=== PATIENT | female | born 1995 | race Caucasian/White ===

== ENCOUNTER 2022-04-07 13:59 | Outpatient (CLI) | payer MEDICAID, SELFPAY ==
[2022-04-07 22:15] LABS: Basophils Percent Auto 0.3 % (0.0-3.0); Eosinophils Percent Auto 0.3 % (0.0-7.0); Hematocrit 41.4 % (33.0-51.0); Hemoglobin* 13.9 gm/dL (12.0-16.0); Immature Granulocytes Pct Auto 0.1 %; Mean Corpuscular HGB Conc 34 gm/dL (32-36); Mean Corpuscular Hemoglobin 26 pg (26-34); Mean Corpuscular Volume 79 fL (80-100); Monocytes Percent Auto 6.7 % (0.0-11.0); Neutrophils Percent Auto 71.6 % (42.0-72.0); Platelet Count* 394 K/uL (140-440); RDW Coefficient of Variation % 13.9 % (11.5-15.5); Red Blood Count 5.27 m/uL (4.00-5.20); White Blood Count* 11.07 K/uL (4.50-11.00)
[2022-04-07 22:22] LABS: Slide Review Reflex No
[2022-04-07 22:33] LABS: Albumin* 4.7 g/dL (3.3-5.0); Chloride* 103 mmol/L (96-114); Sodium* 140 mmol/L (135-149)
[2022-04-07 22:35] LABS: Amylase* 145 U/L (18-89)
[2022-04-07 22:36] LABS: Alanine Aminotransferase* 22 U/L (4-35); Alkaline Phosphatase* 92 U/L (40-150); Aspartate Amino Transferase* 20 U/L (12-35); Bilirubin Total* 0.5 mg/dL (0.1-1.5); Blood Urea Nitrogen* 9 mg/dL (5-24); Calcium* 9.7 mg/dL (8.4-10.6); Carbon Dioxide* 28 mmol/L (20-32); Creatinine* 0.6 mg/dL (0.5-1.5); Estimated Glomerular Filt Rate 125 ml/min; Glucose* 118 mg/dL (60-115); Lipase* 32 U/L (23-300)
== END 2022-04-07 14:00 | disposition home or self-care (01) ==
PROVIDERS: Visit Provider Nurse Practitioner Family
DX: R11.2 Nausea with vomiting, unspecified (principal)
CPT/HCPCS: 36415; 76705; 80048; 80053; 80076; 82077; 82150; 83690; 85025; 86140; 87086; 99283

== ENCOUNTER 2022-04-07 21:14 | Emergency (ER) | payer MEDICAID, SELFPAY ==
[2022-04-07 21:17] VITALS: BP 120/82; PULSE 78; RESP 18; TEMP 36.4; O2SAT 100; BMI 32.0
[2022-04-07 23:38] LABS: Basophils Percent Auto 0.2 % (0.0-3.0); Eosinophils Percent Auto 0.4 % (0.0-7.0); Hematocrit 40.8 % (33.0-51.0); Hemoglobin* 13.5 gm/dL (12.0-16.0); Immature Granulocytes Pct Auto 0.9 %; Lymphocytes Percent Auto 24.9 % (20-44); Mean Corpuscular HGB Conc 33 gm/dL (32-36); Mean Corpuscular Hemoglobin 26 pg (26-34); Mean Corpuscular Volume 79 fL (80-100); Monocytes Percent Auto 8.3 % (0.0-11.0); Neutrophils Percent Auto 65.3 % (42.0-72.0); Platelet Count* 357 K/uL (140-440); RDW Coefficient of Variation % 13.9 % (11.5-15.5); White Blood Count* 12.82 K/uL (4.50-11.00)
[2022-04-07 23:43] LABS: Slide Review Reflex No
[2022-04-07 23:51] LABS: Albumin* 4.7 g/dL (3.3-5.0); Chloride* 104 mmol/L (96-114); Sodium* 141 mmol/L (135-149)
[2022-04-07 23:52] LABS: Potassium* 3.8 mmol/L (3.6-5.1)
[2022-04-07 23:54] LABS: Bilirubin Direct* 0.1 mg/dL (0.0-0.5); Bilirubin Total* 0.7 mg/dL (0.1-1.5); Carbon Dioxide* 29 mmol/L (20-32); Creatinine* 0.6 mg/dL (0.5-1.5); Est. Creatinine Clearance* 125.61; Estimated Glomerular Filt Rate 125 ml/min
[2022-04-07 23:55] LABS: Alanine Aminotransferase* 22 U/L (4-35); Alkaline Phosphatase* 89 U/L (40-150); Aspartate Amino Transferase* 23 U/L (12-35); Blood Urea Nitrogen* 10 mg/dL (5-24); Calcium* 9.2 mg/dL (8.4-10.6); Glucose* 118 mg/dL (60-115); Total Protein* 8.1 g/dL (6.0-8.3)
[2022-04-07 23:58] LABS: C Reactive Protein* < 0.5 mg/dL (0.5-1.0); Ethanol* < 0.01 % (0.01-0.03)
--- NOTE | 2022-04-08 08:32 | ED_ITS ---
HPI - General Adult General Chief complaint: Nausea/Vomiting Stated complaint: Nausea & vomiting last 3 days Time Seen by Provider: 04/07/22 21:16 History of Present Illness HPI narrative: 26-year-old woman accompanied by friend with complaint of nausea vomiting and right upper abdominal pain. Third day of symptoms now. Was seen this afternoon in clinic in has been arranged for an ultrasound for the morning. Review of records shows normal transaminases at that time. She had she says what sounds like Zofran given in clinic but apparently was not able to get to the pharmacy in time to get more that had been prescribed. Looks like was also written for Prilosec. She has had 2 episodes of vomiting during the afternoon. She says she feels like she is losing her mind. Says she has been able to keep anything down for now this 3rd day. She denies constipation. Review of records shows that this episode may have have started around sharing a pt of whiskey with a friend; the quantity is reported to be atypical. She is wondering if the pain she is experiencing is just related to having an empty stomach or maybe from all the retching she had been doing. Related Data Home Medications Medication Instructions Recorded Confirmed alprazolam 1 mg tablet 1 mg PO TID 04/07/22 04/07/22 brexpiprazole 3 mg tablet (Rexulti) 3 mg PO QHS 04/07/22 04/07/22 fluticasone propionate 50 2 spray intranasal 04/07/22 04/07/22 mcg/actuation nasal spray,suspension gabapentin 600 mg tablet 600 mg PO 04/07/22 04/07/22 hydroxyzine pamoate 100 mg capsule 100 mg PO QID 04/07/22 04/07/22 ketotifen fumarate 0.025 % (0.035 2 drp ophthalmic (eye) BID 04/07/22 04/07/22 %) eye drops (Allergy Eye (ketotifen)) milnacipran 50 mg tablet (Savella) 50 mg PO BID 04/07/22 04/07/22 montelukast 10 mg tablet 10 mg PO 04/07/22 04/07/22 prazosin 5 mg capsule 5 mg PO QDAY 04/07/22 04/07/22 quetiapine 200 mg tablet,extended 200 mg PO QHS 04/07/22 04/07/22 release 24 hr quetiapine 50 mg tablet,extended 50 mg PO 04/07/22 04/07/22 release 24 hr sertraline 50 mg tablet (Zoloft) 50 mg PO QDAY 04/07/22 04/07/22 tizanidine 4 mg tablet 4 mg PO Q6H PRN 04/07/22 04/07/22 trazodone 100 mg tablet 100 mg PO QHS 04/07/22 04/07/22 Previous Rx's Medication Instructions Recorded omeprazole 20 mg capsule,delayed 20 mg PO QDAY 14 days #14 caps 04/07/22 release ondansetron 4 mg disintegrating 4 mg PO BID-TID PRN nausea and 04/07/22 tablet vomiting 3 days #12 tabs Allergies Allergy/AdvReac Type Severity Reaction Status Date / Time Sulfa (Sulfonamide AdvReac Severe Verified 04/07/22 21:20 Antibiotics) Review of Systems Status of ROS: Reports: 6 or more systems reviewed and unremarkable except as noted in History and below Exam Narrative: Exam Narrative: Rather calm initially. Mood fluctuates quickly becoming more distressed at one point. Carefully casually groomed. Skin is warm and dry. No rash apparent. Well perfused peripherally. Oropharynx is sticky. Neck is supple. Cranial nerves 2-12 look to be intact. Moving all extremities without difficulty. Lungs are clear. Heart is in a regular rate and rhythm. No murmur rub or gallop identified. Abdomen with normoactive bowel sounds is soft and overweight. Moderately tender in the right upper quadrant under the ribs. No flank pain. Const: Vital Signs, click to edit/add: Vital Signs - 24 hr 04/07/22 21:17 Temperature 97.6 F Pulse Rate [Pulse Oximeter] 78 Respiratory Rate 18 Blood Pressure [Ri t Upper Arm] 120/82 Pulse Oximetry 100 Oxygen Delivery Me thod Room Air Documenting provider has reviewed patient's vital signs: yes Course Vital Signs Vital signs: Initial Vital Signs Temperature 97.6 F 04/07/22 21:17 Temperature Source Temporal Artery Scan 04/07/22 21:17 Pulse Rate 78 04/07/22 21:17 Pulse Rhythm 04/07/22 21:17 Pulse Strength 3+ Normal 04/07/22 21:17 Respiratory Rate 18 04/07/22 21:17 Blood Pressure 120/82 04/07/22 21:17 Blood Pressure Mean 94 04/07/22 21:17 Blood Pressure Position Sitting 04/07/22 21:17 Pulse Oximetry 100 04/07/22 21:17 Oxygen Delivery Method 04/07/22 21:17 Vital Signs Temperature 97.6 F 04/07/22 21:17 Pulse Rate 78 04/07/22 21:17 Respiratory Rate 18 04/07/22 21:17 Blood Pressure 120/82 04/07/22 21:17 Pulse Oximetry 100 04/07/22 21:17 Oxygen Delivery Method 04/07/22 21:17 Temperature 97.6 F 04/07/22 21:17 Pulse Rate 78 04/07/22 21:17 Respiratory Rate 18 04/07/22 21:17 Blood Pressure 120/82 04/07/22 21:17 Pulse Oximetry 100 04/07/22 21:17 Oxygen Delivery Method 04/07/22 21:17 Medical Decision Making MDM Narrative Medical decision making narrative: Symptoms certainly could be related to gallbladder disease. Could be musculoskeletal in origin with strain of recurrent vomiting. Infectious gastroenteritis as well. Seems to have pain not really in the area of her stomach but I suppose could be hyperchlorhydric exacerbating symptoms. Initiating IV fluids this does seem to be dehydrated. Also given ketorolac for pain. Zofran as well. Calm and not in particular distress unless area palpated on reexamination. Reported not much change in symptoms overall and after extended period of time in the emergency department just requesting departure. We did discuss doing imaging but this is already scheduled for the morning and she intends to follow up then. Labs with mildly elevated white count, normal transaminases. Normal CRP. Anti-emetics from [facility]. Lab Data Lab results reviewed: Yes I reviewed the patient's lab results Labs: Lab Results 04/07/22 04/07/22 Range/Units 23:20 23:20 WBC 12.82 H (4.50-11.00) K/uL RBC 5.20 (4.00-5.20) m/uL Hgb 13.5 (12.0-16.0) gm/dL Hct 40.8 (33.0-51.0) % MCV 79 L (80-100) fL MCH 26 (26-34) pg MCHC 33 (32-36) gm/dL RDW Coeff of Maria R 13.9 (11.5-15.5) % Plt Count 357 (140-440) K/uL Neut % (Auto) 65.3 (42.0-72.0) % Lymph % (Auto) 24.9 (20-44) % [place]han % (Auto) 8.3 (0.0-11.0) % Eos % (Auto) 0.4 (0.0-7.0) % Baso % (Auto) 0.2 (0.0-3.0) % Neut # (Auto) 8.40 H (1.7-7.0) K/uL Lymph # (Auto) 3.20 H (0.90-2.90) K/uL [place]han # (Auto) 1.10 H (0.00-0.90) K/UL Eos # (Auto) 0.10 (0.00-0.50) K/uL Baso # (Auto) 0.00 (0.00-0.30) K/uL Sodium 141 (135-149) mmol/L Potassium 3.8 (3.6-5.1) mmol/L Chloride 104 (96-114) mmol/L Carbon Dioxide 29 (20-32) mmol/L BUN 10 (5-24) mg/dL Creatinine 0.6 (0.5-1.5) mg/dL Estimated Creat Clear 125.61 Estimated GFR 125 ml/min Glucose 118 H (60-115) mg/dL Calcium 9.2 (8.4-10.6) mg/dL Total Bilirubin 0.7 (0.1-1.5) mg/dL Direct Bilirubin 0.1 (0.0-0.5) mg/dL AST 23 (12-35) U/L ALT 22 (4-35) U/L Alkaline Phosphatase 89 (40-150) U/L C-Reactive Protein < 0.5 L (0.5-1.0) mg/dL Total Protein 8.1 (6.0-8.3) g/dL Albumin 4.7 (3.3-5.0) g/dL Ethyl Alcohol < 0.01 L (0.01-0.03) % Discharge Plan Discharge Clinical Impression: Right upper quadrant abdominal pain, Nausea and vomiting Patient Disposition: Home w/ Parent or Adult Condition: Stable Instructions: Acute Nausea and Vomiting (ED) Additional Instructions: Continue just to focus on hydration. Might try also soup broths and diluted juices. Then thicker soups and smoothies. Rice. Herman. All advancing over the next 24-36 hours. Follow-up as scheduled for this ultrasound and image review. Return for intractable pain, intractable vomiting, associated fever. Zofran from [facility]. Prescriptions: No Action alprazolam 1 mg tablet 1 mg PO TID Rexulti 3 mg tablet 3 mg PO QHS hydroxyzine pamoate 100 mg capsule 100 mg PO QID prazosin 5 mg capsule 5 mg PO QDAY quetiapine 200 mg tablet extended release 24 hr 200 mg PO QHS quetiapine 50 mg tablet extended release 24 hr 50 mg PO trazodone 100 mg tablet 100 mg PO QHS sertraline [Zoloft] 50 mg tablet 50 mg PO QDAY tizanidine 4 mg tablet 4 mg PO Q6H PRN Savella 50 mg tablet 50 mg PO BID gabapentin 600 mg tablet 600 mg PO montelukast 10 mg tablet 10 mg PO fluticasone propionate 50 mcg/actuation spray,suspension 2 spray intranasal ketotifen fumarate [Allergy Eye (ketotifen)] 0.025 % (0.035 %) drops 2 drp ophthalmic (eye) BID Rx Instructions: administer at least 8 hours apart ondansetron 4 mg tablet,disintegrating 4 mg PO BID-TID PRN (Reason: nausea and vomiting) 3 Days Qty: 12 0RF omeprazole 20 mg capsule,delayed release(DR/EC) 20 mg PO QDAY 14 Days Qty: 14 0RF Follow Up/Referrals: Provider,Not a Local [Primary Care Provider] - Stand Alone Forms: [employer] Info Instructions
== END 2022-04-08 01:05 | disposition home or self-care (01) ==
PROVIDERS: Emergency Provider Family Medicine
DX: R11.2 Nausea with vomiting, unspecified (principal); R10.11 Right upper quadrant pain
CPT/HCPCS: 36415; 76705; 80048; 80053; 80076; 81001; 82077; 82150; 83690; 85025; 86140; 87086; 99283; 99284

== ENCOUNTER 2022-04-08 09:09 | Outpatient (CLI) | payer MEDICAID, SELFPAY ==
--- NOTE | 2022-04-08 09:45 | CRLHL7_ITS ---
For Patients: As a result of the Century Cures Act, medical imaging exams and procedure reports are released immediately into your electronic medical record. You may view this report before your referring provider. If you have questions, please contact your health care provider. INDICATION: RUQ PAIN COMPARISON: none TECHNIQUE: Real time mohan scale imaging and color Doppler analysis was performed of the right upper quadrant. FINDINGS: The patient`s liver is of normal size and has uniform echogenicity. There is a normal appearance of the hepatic IVC and proximal abdominal aorta. There is no evidence of ascites. The gallbladder is of normal size and there may be mild layering sludge. No gallstones. The gallbladder wall measures 2 mm in thickness. The common bile duct is of normal size and measures 3 mm in diameter at the level of the lavonne hepatis. The pancreas appears normal. There is no evidence of a stone or hydronephrosis within the right kidney. The right kidney measures 10.5 cm in length. IMPRESSION: Mild layering sludge within the gallbladder lumen may be present. Positive sonographic Jiménez`s sign. No biliary obstruction. Recommend a HIDA scan for further evaluation. Dictated by Carlos Manuel Edmond MD @ 04/08/2022 10:47:07 AM (Electronically Signed)
== END 2022-04-08 09:10 | disposition home or self-care (01) ==
LOC: US 09:11
PROVIDERS: Visit Provider Nurse Practitioner Family
DX: R10.11 Right upper quadrant pain (principal); K82.9 Disease of gallbladder, unspecified
CPT/HCPCS: 36415; 76705; 80048; 80053; 80076; 82077; 82150; 83690; 85025; 86140; 99283

== ENCOUNTER 2022-04-08 13:10 | Outpatient (CLI) | payer MEDICAID, SELFPAY ==
[2022-04-08 21:39] LABS: Basophils Absolute Auto 0.05 K/uL (0.00-0.30); Basophils Percent Auto 0.5 % (0.0-3.0); Eosinophils Absolute Auto 0.03 K/uL (0.00-0.50); Eosinophils Percent Auto 0.3 % (0.0-7.0); Hematocrit 40.6 % (33.0-51.0); Hemoglobin* 13.3 gm/dL (12.0-16.0); Immature Granulocytes Abs Auto 0.02 K/uL (0.00-0.30); Immature Granulocytes Pct Auto 0.2 %; Lymphocytes Absolute Auto 2.62 K/uL (0.90-2.90); Lymphocytes Percent Auto 24.3 % (20-44); Mean Corpuscular HGB Conc 33 gm/dL (32-36); Mean Corpuscular Hemoglobin 26 pg (26-34); Mean Corpuscular Volume 79 fL (80-100); Monocytes Percent Auto 6.7 % (0.0-11.0); Neutrophils Absolute Auto 7.34 K/uL (1.7-7.0); Platelet Count* 354 K/uL (140-440); RDW Coefficient of Variation % 13.7 % (11.5-15.5); Red Blood Count 5.14 m/uL (4.00-5.20); White Blood Count* 10.78 K/uL (4.50-11.00)
[2022-04-08 21:42] LABS: Slide Review Reflex No
[2022-04-08 21:52] LABS: Albumin* 4.5 g/dL (3.3-5.0); Chloride* 107 mmol/L (96-114); Sodium* 141 mmol/L (135-149)
[2022-04-08 21:53] LABS: Potassium* 4.1 mmol/L (3.6-5.1)
[2022-04-08 21:55] LABS: Alkaline Phosphatase* 80 U/L (40-150); Amylase* 101 U/L (18-89); Aspartate Amino Transferase* 21 U/L (12-35); Bilirubin Total* 0.6 mg/dL (0.1-1.5); Blood Urea Nitrogen* 11 mg/dL (5-24); Carbon Dioxide* 24 mmol/L (20-32); Creatinine* 0.7 mg/dL (0.5-1.5); Estimated Glomerular Filt Rate 121 ml/min; Glucose* 99 mg/dL (60-115); Total Protein* 7.4 g/dL (6.0-8.3)
[2022-04-08 21:56] LABS: Alanine Aminotransferase* 20 U/L (4-35); Calcium* 9.2 mg/dL (8.4-10.6); Lipase* 37 U/L (23-300)
== END 2022-04-08 13:11 | disposition home or self-care (01) ==
PROVIDERS: Visit Provider Nurse Practitioner Family
DX: R11.2 Nausea with vomiting, unspecified (principal); R10.11 Right upper quadrant pain
CPT/HCPCS: 80053; 82150; 83690; 85025

== ENCOUNTER 2022-04-10 08:03 | Outpatient (CLI) | payer MEDICAID, SELFPAY ==
--- NOTE | 2022-04-10 09:00 | NM_ITS ---
Patient: TYREL FRAGA Facility:?[facility] Patient ID:?[id number] Site Patient ID:?[id number]. Site :?[id number] Study:?NM-Gallbladder Procedure LOPEZ grimes GBEF-04/10/2022 11:00:35 AM Ordering Physician:Swetha Rainey Final Report: ----ADDENDUM---- CORRECTION TO IMPRESSION FOLLOWS: IMPRESSION: 1. There is no evidence of acute or chronic cholecystitis. 2. Normal gallbladder ejection fraction of 41 percent. FAHEEM CHAVARRIA M.D. Diagnostic/Nuclear Medicine Radiologist [employer]. [email or web address] Transcribed: 2:27 p.m. HISTORY: 26-year-old female. Right upper quadrant abdominal pain. TECHNIQUE: 5.34 millicuries of [id number] was injected intravenously. Images of the liver, gallbladder and abdomen were obtained in the anterior projection for 50 minutes. 1.80 mcg CCK was then administered intravenously and imaging was continued for an additional 30 minutes. FINDINGS: There is good uptake of activity by the hepatocytes. There is visualization of the biliary tree, gallbladder and small bowel. In response to CCK administration, there was a normal gallbladder ejection fraction of 41 percent by 30 minutes. IMPRESSION: 1. There is no evidence of significant myocardial ischemia or infarction. 2. Normal left ventricular liu fraction of 41 percent. Dictated by Faheem Chavarria MD @ 04/10/2022 11:03:43 AM Signed by: Faheem Chavarria @ 04/10/2022 11:03:43 AM (Electronic Signature) Signed by:?Faheem Chavarria MD @04/11/2022 3:48:07 PM (Electronic Signature)
--- NOTE | 2022-04-10 09:00 | CRLHL7_ITS ---
For Patients: As a result of the 21st Century Cures Act, medical imaging exams and procedure reports are released immediately into your electronic medical record. You may view this report before your referring provider. If you have questions, please contact your health care provider. HISTORY: 26-year-old female. Right upper quadrant abdominal pain. TECHNIQUE: 5.34 millicuries of [id number] was injected intravenously. Images of the liver, gallbladder and abdomen were obtained in the anterior projection for 50 minutes. 1.80 mcg CCK was then administered intravenously and imaging was continued for an additional 30 minutes. FINDINGS: There is good uptake of activity by the hepatocytes. There is visualization of the biliary tree, gallbladder and small bowel. In response to CCK administration, there was a normal gallbladder ejection fraction of 41 percent by 30 minutes. IMPRESSION: 1. There is no evidence of significant myocardial ischemia or infarction. 2. Normal left ventricular liu fraction of 41 percent. Dictated by Tra Up MD @ 04/10/2022 11:03:43 AM (Electronically Signed)
== END 2022-04-10 08:04 | disposition home or self-care (01) ==
PROVIDERS: PCP Nurse Practitioner Family; Visit Provider Nurse Practitioner Family
DX: R10.11 Right upper quadrant pain (principal)
CPT/HCPCS: 78227; A9537; J2805

== ENCOUNTER 2022-04-24 08:30 | Outpatient (CLI) | payer MEDICAID, SELFPAY ==
--- NOTE | 2022-04-24 09:00 | CRLHL7_ITS ---
For Patients: As a result of the Century Cures Act, medical imaging exams and procedure reports are released immediately into your electronic medical record. You may view this report before your referring provider. If you have questions, please contact your health care provider. INDICATION: Right upper quadrant pain. Elevated amylase. Normal HIDA scan April 10, 2022 with a normal gallbladder ejection fraction. Reported positive sonographic Jiménez`s sign on an ultrasound April 08, 2022. TECHNIQUE: CT of the abdomen and pelvis. 98 cc nonionic Isovue-370 administered. FINDINGS: Clear included lung bases accounting for respiratory motion artifact. Normal-appearing liver without masses or biliary dilatation. Normal size spleen. The pancreas, and gallbladder are within normal limits. Normal adrenal glands. No renal mass or obstruction. Normal caliber abdominal aorta and iliac arteries. Normal inferior vena cava. The small and large bowel are negative for obstruction or ileus. Postsurgical change right lower quadrant likely from an appendectomy. Urinary bladder and uterus are unremarkable. Small cysts or follicles in the ovaries which should be physiologic. Both inguinal regions soft tissues of the included thighs are within normal limits. Normal included skeleton. IMPRESSION: 1. No acute abdominopelvic process identified. 2. No CT evidence for cholecystitis. The previously suggested sludge in the gallbladder identified by ultrasound is not evident today. 3. Postsurgical change right lower quadrant likely from an appendectomy. Please note that all CT scans at this facility use dose modulation, iterative reconstruction, and/or weight-based dosing when appropriate to reduce radiation dose to as low as reasonably achievable. Dictated by Heber Martin MD @ 04/24/2022 10:59:43 AM (Electronically Signed)
== END 2022-04-24 08:31 | disposition home or self-care (01) ==
PROVIDERS: PCP Nurse Practitioner Family; Visit Provider Nurse Practitioner Family
DX: R74.8 Abnormal levels of other serum enzymes (principal); R10.11 Right upper quadrant pain
CPT/HCPCS: 74177; 87338; Q9967

== ENCOUNTER 2022-04-24 13:16 | Outpatient (CLI) | payer MEDICAID, SELFPAY ==
[2022-04-24 22:28] LABS: H pylori Ag Stool* Negative (Negative)
== END 2022-04-24 13:17 | disposition home or self-care (01) ==
LOC: KYNREF 13:16
PROVIDERS: PCP Nurse Practitioner Family; Visit Provider Nurse Practitioner Family
DX: R10.11 Right upper quadrant pain (principal)
CPT/HCPCS: 87338